=== PATIENT | male | born 1975 | race Two or more races ===

== ENCOUNTER 2017-06-09 14:25 | Emergency (ER) | payer OTHER ==
[~2017-06-09] VITALS: Ht 177.8 cm; Wt 87.5 kg
[2017-06-09 14:40] VITALS: BP 135/77
--- NOTE | 2017-06-09 20:22 | NUR ---
PT TAKEN TO [facility]
--- NOTE | 2017-06-09 20:25 | NUR ---
Dr. Lucas evaluating patient
[2017-06-09 21:05] VITALS: BP 127/63
--- NOTE | 2017-06-09 21:05 | NUR ---
Patient discharged with v/s stable. Written and verbal after care instructions given and explained. Patient verbalized understanding. Ambulatory with steady gait. All questions addressed prior to discharge. Advised to follow up with PMD. Homeless resource packet given.
== END 2017-06-09 21:05 | disposition home or self-care (01) ==
LOC: MED 14:25
DX: Z00.00 Encounter for general adult medical examination without abnormal findings (principal); F20.9 Schizophrenia, unspecified
CPT/HCPCS: 99281

== ENCOUNTER 2018-02-28 14:18 | Emergency (ER) | payer OTHER ==
[~2018-02-28] VITALS: Ht 182.9 cm; Wt 79.4 kg
[2018-02-28 14:37] VITALS: BP 150/74
--- NOTE | 2018-02-28 14:43 | NUR ---
PT AMBULATES TO BED 3
--- NOTE | 2018-02-28 15:10 | NUR ---
42 YO M TO ER WITH C/O AUDITORY AND VISUAL HALLUCINATIONS WORSENING IN THE LAST TWO DAYS. DENIES HOMICIDAL/SUICIDAL IDEATION. ADMITS TO SMOKING METH LAST NIGHT. PT RESTLESS IN ROOM. STATES 'THE VOCIES KEEP ME ISOLATED ". LS CLEAR, BS ACTIVE X4. PT DENIES ANY CP, SOB, FEVER OR COUGH AT THIS TIME. ER MD MADE AWARE. WILL CONTINUE TO MONITOR. MED HX: SCHIZO, BIPOLAR MEDS: ABILIFY,TEGERETOL, VISTARIL
[2018-02-28] MEDS ORDERED: OLANZapine 5 MG TAB PO SCH (15:25)
--- NOTE | 2018-02-28 15:35 | NUR ---
CALLED PHARMACY FOR MED
--- NOTE | 2018-02-28 16:07 | NUR ---
PT DR MONICA ALVARADO Addendum: 02/28/18 at 1647 by ASHLEYS PT STATES " THAT MED KNOCKES ME OUT, I DONT WANT IT"
--- NOTE | 2018-02-28 16:08 | NUR ---
DR ANDERSON AT BEDSIDE. PT BECOMING AGGITATED. OPENED MARGARET. ALLOWING TIME FOR THE PT TO RELAX
[2018-02-28] MEDS ORDERED: ARIPiprazole 10 MG TAB PO SCH (16:10)
--- NOTE | 2018-02-28 16:10 | NUR ---
ASKED PT THE MED THAT HE USES NORMALLY PER DR ANDERSON
--- NOTE | 2018-02-28 16:20 | NUR ---
CALLED PHARMACY FOR MED
--- NOTE | 2018-02-28 16:50 | NUR ---
PT APPEARS TO BE SLEEPING, IN NO APPEARENT DISTRESS
[2018-02-28 17:28] VITALS: BP 146/76
--- NOTE | 2018-02-28 17:28 | NUR ---
Patient discharged with v/s stable. Written and verbal after care instructions given and explained. Patient alert, oriented and verbalized understanding of instructions. Ambulatory with steady gait. All questions addressed prior to discharge. ID band removed. Patient advised to follow up with PMD. Rx of ABILIFY 10 MG given. Patient educated on indication of medication including possible reaction and side effects. Opportunity to ask questions provided and answered.
== END 2018-02-28 17:28 | disposition home or self-care (01) ==
LOC: MED 14:18
DX: F15.10 Other stimulant abuse, uncomplicated (principal); F20.9 Schizophrenia, unspecified; F31.9 Bipolar disorder, unspecified
CPT/HCPCS: 81002; 81025; 99283

== ENCOUNTER 2018-03-25 18:52 | Emergency (ER) | payer OTHER ==
[~2018-03-25] VITALS: Ht 180.3 cm; Wt 72.6 kg
[2018-03-25 18:55] VITALS: BP 132/76
[2018-03-25 19:10] VITALS: BP 132/76
== END 2018-03-25 20:50 | disposition left against medical advice (07) ==
LOC: MED 18:52
DX: Z91.19 Patient's noncompliance with other medical treatment and regimen (principal); F20.9 Schizophrenia, unspecified; F15.90 Other stimulant use, unspecified, uncomplicated
CPT/HCPCS: 99281